=== PATIENT | female | born 1975 | race Caucasian/White ===

== ENCOUNTER 2021-08-19 06:12 | Inpatient (IN) | payer MEDICAID ==
[~2021-08-19] VITALS: Ht 165.1 cm; Wt 110.0 kg
[2021-08-19] MEDS ORDERED: acetaminophen 325mg tablet PO ONE (07:40)
--- NOTE | 2021-08-19 08:45 | NUR ---
Numerous attempts for IV start failed, MD Falcon updated and received VO to hold off and not start IV and to give Toradol via IM.
[2021-08-19] MEDS: ketorolac tromethamine 15mg/ml inj. IV ONE ×2 (08:47→08:49)
[2021-08-19 09:31] LABS: BASOPHILS # (AUTO) 0.1 X10'3 (0-0.2); BASOPHILS % (AUTO) 1.1 % (0-1); EOSINOPHILS # (AUTO) 0.4 X10'3 (0-0.9); EOSINOPHILS % (AUTO) 4.1 % (0-6); HEMATOCRIT 37.5 % (35.0-45.0); HEMOGLOBIN 12.5 g/dl (12.0-16.0); LYMPHOCYTES # (AUTO) 2.4 X10'3 (1.1-4.8); LYMPHOCYTES % (AUTO) 21.6 % (21-51); MEAN CORPUSCULAR HEMOGLOBIN 29.8 PG (27.0-31.0); MEAN CORPUSCULAR HGB CONC 33.3 g/dL (33.0-36.5); MEAN CORPUSCULAR VOLUME 89.3 FL (78-98); MEAN PLATELET VOLUME 6.9 FL (7.4-10.4); MONOCYTES # (AUTO) 0.8 X10'3 (0-0.9); MONOCYTES % (AUTO) 7.7 % (2-12); NEUTROPHILS # (AUTO) 7.1 X10'3 (1.8-7.7); NEUTROPHILS % (AUTO) 65.5 % (42-75); PLATELET COUNT 406 X10'3 (140-440); RED BLOOD COUNT 4.19 X10'6 (4.20-5.60); RED CELL DISTRIBUTION WIDTH 14.8 % (11.5-14.5); WHITE BLOOD COUNT 10.9 X10'3 (4.5-11.0)
[2021-08-19 09:57] LABS: ALANINE AMINOTRANSFERASE 19 U/L (12-78); ALBUMIN 3.3 G/DL (3.4-5.0); ALBUMIN/GLOBULIN RATIO 0.9 (1.1-1.5); ALKALINE PHOSPHATASE 101 IU/L (46-116); ANION GAP 11 (8-16); ASPARTATE AMINO TRANSFERASE 15 U/L (10-37); BILIRUBIN,TOTAL 0.3 MG/DL (0.1-1.0); BLOOD UREA NITROGEN 17 MG/DL (7-18); BUN/CREATININE RATIO 19.3 (6.6-38.0); C-REACTIVE PROTEIN 2.07 MG/DL (0.0-0.5); CALCIUM 8.3 MG/DL (8.5-10.1); CHLORIDE 104 MMOL/L (99-107); CREATININE 0.88 MG/DL (0.40-0.90); GLUCOSE 74 MG/DL (70-104); POTASSIUM 3.7 MMOL/L (3.5-5.1); SODIUM 139 MMOL/L (135-145); TOTAL CARBON DIOXIDE 24.1 MMOL/L (24-32); TOTAL PROTEIN 7.1 G/DL (6.4-8.2); eGFR 69 ML/MIN
--- NOTE | 2021-08-19 11:25 | NUR ---
Pt will require IV per MD Falcon. PICC RN called as pt will require ultrasound guided IV start.
--- NOTE | 2021-08-19 13:30 | NUR ---
Attempted IV placement x 2 as still awaiting PICC RN. IV not obtained and Dr. Falcon updated on pt IV status. No new orders and to await IV placement as pt in need of CT with contrast.
--- NOTE | 2021-08-19 16:05 | NUR ---
PICC RN placed IV. CT paged to inform pt with line.
[2021-08-19] MEDS ORDERED: CefTRIAXone 2gm/D5W 50ml BAG 50 ML IV ONE (16:25)
[2021-08-19] MEDS ORDERED: normal saline 1000ML IV soln IV ONE (16:25)
[2021-08-19] MEDS ORDERED: iohexol 300mg/ml 100ml inj. ONE (16:31)
[2021-08-19] MEDS ORDERED: DOXY-224 PO (17:42)
[2021-08-19] MEDS ORDERED: ondansetron/PF 4mg/2ml inj IV PRN (17:55)
[2021-08-19] MEDS ORDERED: HYDROcodone/acetaminophen 10/325mg tab PO PRN (17:55)
[2021-08-19] MEDS ORDERED: magnesium hydroxide 30ml (MOM) UD suspension PO PRN (17:55)
[2021-08-19] MEDS ORDERED: morphine 2 MG/ML inj. syringe IV PRN ×2 (17:55)
[2021-08-19] MEDS ORDERED: mag hydrox/Alum hydrox/simeth 30ml oral suspension PO PRN (17:55)
[2021-08-19] MEDS ORDERED: acetaminophen 325mg tablet PO PRN ×2 (17:55)
[2021-08-19] MEDS ORDERED: HYDROcodone/acetaminophen 5mg/325mg tablet PO PRN (17:55)
[2021-08-19] MEDS: docusate sod 100mg capsule PO SCH (19:15)
--- NOTE | 2021-08-19 19:59 | NUR ---
MRI FORM COMPLETED
[2021-08-19 21:00] VITALS: BP 117/63
[2021-08-20] VITALS: BP 131/67
[2021-08-20] MEDS: ceFAZolin/D5W- 1GM premix 50 ML IV SCH ×2 (00:11→09:06)
[2021-08-20 06:03] LABS: BASOPHILS # (AUTO) 0.1 X10'3 (0-0.2); BASOPHILS % (AUTO) 1.3 % (0-1); EOSINOPHILS # (AUTO) 0.3 X10'3 (0-0.9); EOSINOPHILS % (AUTO) 5.1 % (0-6); HEMOGLOBIN 12.6 g/dl (12.0-16.0); LYMPHOCYTES # (AUTO) 1.8 X10'3 (1.1-4.8); LYMPHOCYTES % (AUTO) 29.9 % (21-51); MEAN CORPUSCULAR HEMOGLOBIN 29.9 PG (27.0-31.0); MEAN CORPUSCULAR HGB CONC 33.2 g/dL (33.0-36.5); MEAN PLATELET VOLUME 7.1 FL (7.4-10.4); MONOCYTES # (AUTO) 0.5 X10'3 (0-0.9); MONOCYTES % (AUTO) 8.9 % (2-12); NEUTROPHILS # (AUTO) 3.3 X10'3 (1.8-7.7); NEUTROPHILS % (AUTO) 54.8 % (42-75); PLATELET COUNT 335 X10'3 (140-440); RED BLOOD COUNT 4.22 X10'6 (4.20-5.60); RED CELL DISTRIBUTION WIDTH 14.4 % (11.5-14.5)
[2021-08-20 06:31] LABS: ALBUMIN 2.8 G/DL (3.4-5.0); ANION GAP 9 (8-16); BLOOD UREA NITROGEN 9 MG/DL (7-18); BUN/CREATININE RATIO 13.8 (6.6-38.0); CHLORIDE 108 MMOL/L (99-107); CREATININE 0.65 MG/DL (0.40-0.90); GLUCOSE 82 MG/DL (70-104); POTASSIUM 4.1 MMOL/L (3.5-5.1); SODIUM 142 MMOL/L (135-145); TOTAL CARBON DIOXIDE 24.9 MMOL/L (24-32); eGFR > 90 ML/MIN
[2021-08-20 07:00] VITALS: BP 113/48
--- NOTE | 2021-08-20 07:04 | NUR ---
Patient in room [facility]. I have received report from MARTHA ROQUE and had the opportunity to ask questions and assume patient care.
[2021-08-20] MEDS: docusate sod 100mg capsule PO SCH (08:00)
[2021-08-20] MEDS ORDERED: enoxaparin 40mg/0.4ml syringe SUBCUT SCH (08:00)
[2021-08-20] MEDS ORDERED: HYDR-3965 PO (10:11)
[2021-08-20] MEDS ORDERED: CEPH250T PO (10:11)
[2021-08-20 11:00] VITALS: BP 94/35
--- NOTE | 2021-08-20 13:28 | NUR ---
PATIENT STABLE AND APPROPRIATE FOR DISCHARGE, IV TAKEN OUT, EDUCATION GIVEN, MEDS E-SCRIPTED TO PREFERRED PHARMACY, ALL BELONGINGS SENT WITH PATIENT, PATIENT TAKEN TO CAR IN A WHEELCHAIR AND PATIENT IS DRIVING SELF HOME
== END 2021-08-20 13:28 | disposition home or self-care (01) | DRG 383 ==
LOC: ER 06:13 → ED HOLD 18:02 → SUR 3N 20:45
PROVIDERS: ADMIT Internal Medicine; ATTEND Internal Medicine
PROC: BQ2S1ZZ Computerized Tomography (CT Scan) of Left Lower Extremity using Low Osmolar Contrast (ICD-10-PCS; principal; 2021-08-19)
DX: L03.116 Cellulitis of left lower limb (principal); E87.2 Acidosis; F12.90 Cannabis use, unspecified, uncomplicated; F17.210 Nicotine dependence, cigarettes, uncomplicated; Z88.1 Allergy status to other antibiotic agents; Z98.51 Tubal ligation status
CPT/HCPCS: 36415; 73610; 73701; 80048; 80053; 83605; 84145; 85025; 85651; 86140; 87040; 87081; 97110; 97116; 97162; 99285; G0378; J0690; J0696; J1650; J1885; J2270; J7030; Q9967